=== PATIENT | male | born 1965 ===

== ENCOUNTER 2019-03-31 20:20 | Emergency (ER) | payer MEDICARE, SELFPAY ==
--- NOTE | ~2019-03-31 | XR_ITS ---
EXAMINATION: XR hip LT 2V w AP pelvis INDICATION: Left hip pain, avascular necrosis TECHNIQUE: AP view the pelvis and three views of the left hip are obtained. COMPARISON: None available FINDINGS: Bone alignment is normal. There is no fracture. Sclerosis of the right femoral head and sug gestive of avascular necrosis given the clinical history. IMPRESSION: 1. No acute osseous abnormality. Reviewed, dictated and finalized at location A. [employer]
[2019-03-31 21:02] VITALS: BP 153/90; PULSE 92; RESP 16; TEMP 37.1; O2SAT 98
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
[2019-03-31] MEDS: KETOROLAC (*BKC) 60 MG/2 ML VIAL IM (22:26)
[2019-03-31 23:54] VITALS: BP 107/92; PULSE 82; RESP 18; O2SAT 97
== END 2019-03-31 23:59 | disposition home or self-care (01) ==
PROVIDERS: Emergency Provider Emergency Medicine
DX: M25.552 Pain in left hip (principal); G89.29 Other chronic pain; F41.9 Anxiety disorder, unspecified; F31.9 Bipolar disorder, unspecified; E78.5 Hyperlipidemia, unspecified; G40.909 Epilepsy, unspecified, not intractable, without status epilepticus
CPT/HCPCS: 73502; 73521; 96372; 99283; A9270; J1885

== ENCOUNTER 2020-08-21 18:25 | Emergency (ER) | payer MEDICARE, MEDICAID, SELFPAY ==
--- NOTE | ~2020-08-21 | US_ITS ---
EXAMINATION: US scrotum doppler DATE: 08/21/2020 22:02 INDICATION: Left-sided scrotal swelling TECHNIQUE: Testicular sonogram utilizing grayscale and Doppler COMPARISON: None. FINDINGS: The right testis measures 4.4 x 2.8 x 3.0 cm. The left testis measures 4.4 x 2.9 x 3.0 cm. There is normal vascular flow to both testes. The right epididymis contains a 5 mm cyst. The left epi didymis is normal with normal vascular flow. There is a large left hydrocele. IMPRESSION: 1. Large left hydrocele. Reviewed, dictated and finalized at location A. IMPRESSION: 1. Large left hydrocele.
--- NOTE | ~2020-08-21 | CT_ITS ---
EXAMINATION: CT abdomen pelvis w con INDICATION: Left-sided coronal spelling and penile discharge TECHNIQUE: Computed tomographic images of the abdomen and pelvis were obtained after the administrati on of 100 cc of Omnipaque 350 intravenous contrast. The dose-length product (DLP) was 1473.30 mGy-cm. Automated exposure control and iterative reconstruction technique were employed. COMPARISON: None available FINDINGS: Minimal dependent atelectasis is present in the lung bases. The heart size is normal. Punct ate calcifications in an otherwise normal spleen likely represent healed granulomatous disease. The l iver, pancreas, gallbladder, and adrenal glands are normal. The kidneys are unremarkable. There is ca lcified atherosclerosis of the aorta and many of the other arteries. No pathologically enlarged abdom inal or pelvic lymph nodes are identified. There is no free intraperitoneal gas or evidence of bowel obstruction. There is a large left hydrocele. Changes of left total hip arthroplasty are noted. There is moderate lower lumbar spondylosis. A fat-containing umbilical hernia is noted. IMPRESSION: 1. Large left hydrocele Reviewed, dictated and finalized at location A. IMPRESSION: 1. Large left hydrocele
[2020-08-21 18:27] VITALS: BP 172/88; PULSE 80; RESP 17; TEMP 36.7; O2SAT 99
[2020-08-21 20:26] LABS: Add Urine Microscopic? NO; Appearance Urine Clear (Clear); Bilirubin Urine Negative (Negative); Blood Urine Negative (Negative); Color Urine Straw (Yellow); Glucose Urine UA Negative (Negative); Ketones Urine Negative (Negative); Leukocyte Esterase Ur Negative LEU/UL (Negative); Nitrate Urine Negative (Negative); Protein Urine Negative (Negative); Specific Grav Ur 1.008 (1.001-1.035); Urobilinogen Urine Negative mg/dL (<2.0)
[2020-08-21 21:41] VITALS: BP 165/98; PULSE 68; RESP 18; TEMP 36.6; O2SAT 97
[2020-08-21 22:21] LABS: Basophils Percent Auto 0.4 % (0.2-1.2); Eosinophils Absolute Auto 0.1 K/mm3 (0-0.3); Eosinophils Percent Auto 1.2 % (0-4.4); Hematocrit 37.2 % (42.0-52.0); Hemoglobin 12.2 g/dL (14.0-18.0); Immature Granulocyte Absolute 0.02 K/mm3 (0.00-0.031); Immature Granulocyte Percent A 0.2 % (0-0.5); Lymphocytes Absolute Auto 3.87 K/mm3 (0.9-3.2); Lymphocytes Percent Auto 43.1 % (18.3-44.2); Mean Corpuscular HGB Conc 32.8 g/dl (32-36); Mean Corpuscular Hemoglobin 29.3 pg (26-34); Mean Corpuscular Volume 89.2 fl (80-100); Mean Platelet Volume 10.1 fl (7.4-10.4); Monocytes Absolute Auto 0.6 K/mm3 (0.1-0.6); Monocytes Percent Auto 6.4 % (2.6-8.5); Neutrophils Absolute Auto 4.4 K/mm3 (1.3-6.7); Neutrophils Percent Auto 48.7 % (45.5-73.1); Platelet Count Result 223 k/mm3 (150-375); Red Blood Count 4.17 M/mm3 (4.6-6.20); Red Cell Distribution Width 14.8 % (11.5-14.5)
[2020-08-21 22:29] LABS: Alanine Aminotransferase 24 U/L (4-50); Albumin Level 4.5 g/dL (3.5-5.1); Alkaline Phosphatase 71 U/L (38-126); Anion Gap 8 mmol/L (8-16); Aspartate Amino Transferase 32 U/L (17-59); Bilirubin,Total 0.4 mg/dL (0.2-1.3); Blood Urea Nitrogen 14 mg/dL (9-20); Calcium 9.3 mg/dL (8.4-10.2); Carbon Dioxide 24 mmol/L (22-30); Chloride 108 mmol/L (98-107); Estimated Glomerular Filt Rate > 60; Glucose 91 mg/dL (75-110); Potassium 3.9 mmol/L (3.4-5.0); Sodium 140 mmol/L (137-145)
--- NOTE | 2020-08-21 23:04 | ED.GENADULT ---
HPI - General Adult General Chief complaint: Unspecified Stated complaint: groin swelling Time Seen by Provider: 08/21/20 21:13 History of Present Illness HPI narrative: Patient 34-year-old gentleman presents the emergency department chief complaint of left testicle pain. Patient states that he took a shower today and noticed that his left testicle was significantly swollen patient states that it was painful and is concerned that he may either have a hernia or something going on in his scrotum. Patient denies fever denies chills denies discharge states that has had no difficulty urinating. Related Data Home Medications Medication Instructions Recorded Confirmed atorvastatin 40 mg tablet 40 mg PO DAILY 02/09/20 clopidogrel 75 mg tablet 75 mg PO DAILY 02/09/20 enalapril maleate 10 mg tablet 10 mg PO DAILY 02/09/20 levetiracetam 1,000 mg tablet 2,000 mg PO Q12H tablet 02/09/20 metoprolol tartrate 25 mg tablet 25 mg PO DAILY 02/09/20 Allergies Allergy/AdvReac Type Severity Reaction Status Date / Time vancomycin Allergy Intermediate Hives / Verified 02/09/20 10:27 Red Face azithromycin Allergy Mild Hives / Verified 02/09/20 10:27 Red Face cefdinir Allergy Unknown Hives / Verified 02/09/20 10:27 Red Face Review of Systems Review of Systems: Narrative: A 10 system review of systems was completed on the patient and is negative except for what is stated in the HPI. Nursing and ancillary documentation was reviewed. PMFSH Past Medical History Medical History Anxiety Bipolar 1 disorder Bronchitis Depression Hyperlipidemia Metatarsal fracture 5th on right foot Pneumonia Seizure Surgical History Surgical History History of brain surgery to remove an abscess Social History Social History Smoking status: Former smoker Tobacco type: cigarettes and smokeless tobacco Smokeless tobacco user: chewing tobacco Gender identity (if verbalized by the patient): Male Exam Narrative: Exam Narrative: GENERAL: Well-appearing, well-nourished, and in no acute distress. HEAD: Normocephalic, atraumatic. EYES: PERRLA and EOMI. ENT: Nares clear, no rhinorrhea or epistaxis. Mucous membranes moist. NECK: Supple. CHEST: Clear to auscultation. No respiratory distress. HEART: Regular rate and rhythm. No murmur heard. Normal peripheral pulses. ABDOMEN: Soft, nontender, nondistended, normal active bowel sounds. EXTREMITIES: Normal range of motion. No edema. : The scrotum is enlarged in the left hemiscrotum has not significantly swollen there is no erythema there is no fluctuance there is no signs of Arun's. SKIN: Warm, dry, no rash. NEURO: No focal deficits. Alert and oriented x3. PSYCH: Normal mood and affect. Course Course Emergency Course: Ultrasound shows evidence of hydrocele without evidence of torsion CT scan shows no evidence of hernia Vital Signs Vital signs: Vital Signs Temperature 36.7 C 08/21/20 18:27 Pulse Rate 80 08/21/20 18:27 Respiratory Rate 17 08/21/20 18:27 Blood Pressure 172/88 H 08/21/20 18:27 Pulse Oximetry 99 08/21/20 18:27 Temperature 36.6 C 08/21/20 21:41 Pulse Rate 68 08/21/20 21:41 Respiratory Rate 18 08/21/20 21:41 Blood Pressure 165/98 H 08/21/20 21:41 Pulse Oximetry 97 08/21/20 21:41 Medical Decision Making Vital Signs Vital Signs: Vital Signs Temperature 36.7 C 08/21/20 18:27 Pulse Rate 80 08/21/20 18:27 Respiratory Rate 17 08/21/20 18:27 Blood Pressure 172/88 H 08/21/20 18:27 Pulse Oximetry 99 08/21/20 18:27 Temperature 36.6 C 08/21/20 21:41 Pulse Rate 68 08/21/20 21:41 Respiratory Rate 18 08/21/20 21:41 Blood Pressure 165/98 H 08/21/20 21:41 Pulse Oximetry 97 08/21/20 21:41 Lab Data Result andi
[2020-08-21 23:26] VITALS: BP 160/90; PULSE 66; RESP 18; O2SAT 98
== END 2020-08-21 23:27 | disposition home or self-care (01) ==
PROVIDERS: Emergency Medicine; Emergency Provider Emergency Medicine; PCP Physician Assistant
DX: N43.3 Hydrocele, unspecified (principal); E78.5 Hyperlipidemia, unspecified
CPT/HCPCS: 36415; 74177; 76870; 80053; 81003; 85025; 93976; 99284; Q9967

== ENCOUNTER 2022-09-28 13:46 | Inpatient (IN) | payer MEDICARE, MEDICAID, SELFPAY ==
[2022-09-28] VITALS (9 sets, daily range): BP systolic 123–175; BP diastolic 50–94; PULSE 72–88; RESP 16–22; TEMP 36.4–36.9; O2SAT 96–98; BMI 37.2
--- NOTE | ~2022-09-28 | CT_ITS ---
Non-contrast Head CT History: Headache Technique: Axial non-contrast imaging of the brain was performed. Dose reduction technique was used on this scan by utilizing automated exposure control and iterative reconstruction technique. The dose -length product (DLP) was 605.33 mGy-cm. Findings: There is no evidence of intracranial hemorrhage, mass lesion, or acute infarct. There is e ncephalomalacia in the right parietal lobe.. There is dilatation of the lateral ventricles, especiall y right lung, with overlying extensive right craniotomy. The visualized paranasal sinuses and mastoid air cells are clear. Impression: No acute abnormality evident. Postoperative encephalomalacia and associated ex vacuo dilatation of the right lateral ventricle with overlying extensive right craniotomy. Correlate with prior surgical history. Reviewed, dictated and finalized at [facility]. Impression: No acute abnormality evident. Postoperative encephalomalacia and associated ex vacuo dilatation of the right lateral ventricle with overlying extensive right craniotomy. Correlate with marko or surgical history.
--- NOTE | ~2022-09-28 | XR_ITS ---
EXAMINATION: XR chest 1V portable Exam Date/Time: 09/30/2022 17:45 CDT HISTORY: IABP placement confirmation Comparison: 09/29/2022. RESULT: Lines, tubes, and devices: Surgical clips over the mediastinum. Lungs and pleura: Clear. Cardiomediastinal silhouette: Stable. Other: No acute osseous or upper abdominal finding. IMPRESSION: No acute cardiopulmonary process. Reviewed, dictated and finalized at location K.
--- NOTE | ~2022-09-28 | XR_ITS ---
Portable chest x-ray Comparison: 02/19/2017 Clinical History: Chest pain Findings: There is mild diffuse interstitial prominence, worst at the right lung base. There is righ t basilar airspace disease. No definite pleural effusion or pneumothorax. Cardiomediastinal silhouet te is stable. Bones and soft tissues are unremarkable. Impression: Mild diffuse interstitial prominence, especially right lung base. Correlate for COPD, chronic interst itial disease or atypical infection. Additional right basilar airspace disease could reflect atelectasis versus pneumonia. Correlate clini karley. Reviewed, dictated and finalized at location . Impression: Mild diffuse interstitial prominence, especially right lung base. Correlate for COPD, chronic interstitial disease or atypical infection. Additional right basilar airspace disease could reflect atelectasis versus pneu monia. Correlate clinically.
--- NOTE | 2022-09-28 16:02 | ED.GENADULT ---
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 Patient states his symptoms have been present for the past 2 weeks, he describes them as throbbing sensation in the left arm and that intermittently spreads to the left leg. These episodes last approximately 30 seconds at a time and spontaneously resolved. He also complains of sharp and throbbing headache, rated 8/10. Related Data Home Medications Medication Instructions Recorded Confirmed atorvastatin 40 mg tablet 40 mg PO DAILY 02/09/20 10/30/20 clopidogrel 75 mg tablet 75 mg PO DAILY 02/09/20 10/30/20 enalapril maleate 10 mg tablet 10 mg PO DAILY 02/09/20 10/30/20 metoprolol tartrate 25 mg tablet 25 mg PO DAILY 02/09/20 10/30/20 Allergies Allergy/AdvReac Type Severity Reaction Status Date / Time vancomycin Allergy Intermediate Hives / Verified 07/29/22 15:22 Red Face azithromycin Allergy Mild Hives / Verified 07/29/22 15:22 Red Face cefdinir Allergy Unknown Hives / Verified 07/29/22 15:22 Red Face Review of Systems Review of Systems: CONSTITUTIONAL: Denies fever, chills, or sweats. EYES: Denies visual changes, redness, or discharge. CARDIOVASCULAR: Denies chest pain, palpitations, or edema. RESPIRATORY: Denies cough or dyspnea. GASTROINTESTINAL: Denies abdominal pain, nausea, vomiting, or diarrhea. GENITOURINARY: Denies dysuria or hematuria. SKIN: Denies rash or itching. MUSCULOSKELETAL: Denies back pain, joint pain, or myalgia. NEUROLOGIC: Left arm and leg twitching denies headache, numbness, dizziness, or weakness. PSYCHIATRIC: Denies anxiety or depression. [facility] Past Medical History Medical History Anxiety Bipolar 1 disorder Bronchitis Depression Hyperlipidemia Metatarsal fracture 5th on right foot Pneumonia Seizure Surgical History Surgical History History of brain surgery (~08/2021) to remove an abscess Hx of heart artery stent Social History Social History Smoking status: Former smoker Tobacco type: cigarettes and smokeless tobacco Smokeless tobacco user: chewing tobacco Smoking end date: 12/23/07 Alcohol intake: current Alcohol use details: beer occasionally Substance use: never Substance use type: does not use Lack of Transportation: No Lack of Food: Sometimes True Current Housing: I Have Housing Concerned About Future Housing: No Difficulty Paying Gas/Electric Bills: No Difficulty Paying for Meds: No Currently Unemployed: No Education: Grade School Difficulty w/ Childcare or Family Care: No Gender identity (if verbalized by the patient): Male Exam Narrative: GENERAL: Well-developed, well-nourished, and in no acute distress. HEAD: Normocephalic, atraumatic. EYES: PERRLA and EOMI. ENT: Nares clear, no rhinorrhea or epistaxis. Mucous membranes moist. Oropharynx without tonsillar hypertrophy exudate or other lesions. CHEST: Clear to auscultation. No respiratory distress. No wheezes rales or rhonchi HEART: Regular rate and rhythm. No murmur heard. Normal peripheral pulses. ABDOMEN: Soft, nontender, nondistended, normal active bowel sounds. EXTREMITIES: Normal range of motion. No edema. SKIN: Warm, dry, no rash. NEURO: No focal deficits. Alert and oriented x3. Sensation intact bilaterally. Strength 5/5 in all extremities PSYCH: Normal mood and affect. Course C
[2022-09-28 16:26] LABS: Basophils Percent Auto 0.4 % (0.2-1.2); Eosinophils Absolute Auto 0.1 K/mm3 (0-0.3); Eosinophils Percent Auto 1.1 % (0-4.4); Hematocrit 39.1 % (42.0-52.0); Hemoglobin 12.3 g/dL (14.0-18.0); Immature Granulocyte Absolute 0.04 K/mm3 (0.00-0.031); Immature Granulocyte Percent A 0.5 % (0-0.5); Lymphocytes Absolute Auto 2.96 K/mm3 (0.9-3.2); Mean Corpuscular HGB Conc 31.5 g/dl (32-36); Mean Corpuscular Hemoglobin 28.5 pg (26-34); Mean Corpuscular Volume 90.7 fl (80-100); Mean Platelet Volume 9.2 fl (7.4-10.4); Monocytes Absolute Auto 0.6 K/mm3 (0.1-0.6); Monocytes Percent Auto 7.4 % (2.6-8.5); Neutrophils Absolute Auto 4.5 K/mm3 (1.3-6.7); Neutrophils Percent Auto 54.6 % (45.5-73.1); Platelet Count Result 203 k/mm3 (150-375); Red Blood Count 4.31 M/mm3 (4.6-6.20); Red Cell Distribution Width 15.6 % (11.5-14.5); White Blood Count 8.2 K/mm3 (4.5-10.0)
[2022-09-28 16:37] LABS: Alanine Aminotransferase 36 U/L (6-50); Albumin Level 4.7 g/dL (3.5-5.1); Alkaline Phosphatase 85 U/L (38-126); Anion Gap 5 mmol/L (8-16); Aspartate Amino Transferase 38 U/L (17-59); Bilirubin,Total 0.8 mg/dL (0.2-1.3); Blood Urea Nitrogen 11 mg/dL (9-20); Calcium 8.7 mg/dL (8.4-10.2); Carbon Dioxide 30 mmol/L (22-30); Chloride 103 mmol/L (98-107); Estimated CRCL calculation 88 ml/min; Estimated Glomerular Filt Rate > 60; Glucose 91 mg/dL (65-110); Magnesium 2.1 mg/dL (1.6-2.3); Potassium 4.1 mmol/L (3.4-5.0); Sodium 138 mmol/L (137-145)
--- NOTE | 2022-09-28 17:31 | ECG_ITS ---
Measurements Intervals [place] Rate: 81 P: 47 TN: 152 QRS: 52 QRSD: 97 T: 55 QT: 387 QTc: 450 Interpretive Statements SINUS RHYTHM NONSPECIFIC ST AND T CHANGES CONSIDER INFEROLATERAL ISCHEMIA ABNORMAL ECG NO PREVIOUS ECG AVAILABLE FOR COMPARISON Electronically Signed On 09-29-2022 8:26:40 CDT by Raymond Sanabria M.D.
[2022-09-28 18:39] LABS: Prothrombin Time 13.9 Seconds (11.1-14.7)
[2022-09-28 18:40] LABS: Partial Thromboplastin Time 28.4 SECONDS (22.3-36.8)
[2022-09-28] MEDS: ASPIRIN 81 MG CHEWABLE TABLET 324 MG PO (18:40)
[2022-09-28] MEDS: HEPARIN SOD/D5W 100 UNITS/ML 25,000 UNITS/250 ML BAG 10 UNITS IV CONT (18:41)
[2022-09-28] MEDS: HEPARIN SODIUM 5,000 UNITS/ML VIAL 4000 UNITS IV PUSH (18:43)
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
--- NOTE | 2022-09-28 21:13 | ADMGEN ---
This patient, Brian Diaz, was admitted to IMU Room 214-01 at 2001. Patient/family oriented to hospital policies and general routines including ID bracelet, bed and alarms, visiting hours, pain management, procedures, bathroom and other care routines, personal items, smoking policy, room service/diet, and visiting hours. Information on how to activate the Rapid Response Team has been discussed. Patient/Family are encouraged to report perceived risks to care and to ask questions if they do not understand what they are told or what they should do.
[2022-09-28] MEDS: ATORVASTATIN 40 MG TABLET PO (22:21)
[2022-09-28] MEDS: QUEtiapine FUMARATE 100 MG TABLET 300 MG PO (22:21)
[2022-09-28] MEDS: METOPROLOL TARTRATE 25 MG TABLET PO (22:22)
[2022-09-28] MEDS: levETIRAcetam 500 MG TABLET 1000 MG PO (22:22)
[2022-09-28] MEDS: HYDROcodone/acetaminophen (*CRX) 5-325 MG TABLET 1 TAB PO (22:35)
[2022-09-28] MEDS: ENALAPRIL MALEATE 5 MG TABLET PO (22:35)
[2022-09-29] VITALS (21 sets, daily range): BP systolic 128–179; BP diastolic 67–104; PULSE 48–94; RESP 18–22; TEMP 36.1–36.6; O2SAT 95–100
--- NOTE | 2022-09-29 00:06 | PC.NURSE ---
Pt rude and not wanting to answer admission questions. Explained to patient by Dr Babin that these questions are necessary for his care. Pt states you guys aren't giving me what I need, instead your asking stupid questions and I've never had to answer these questions before, they just get to it while motioning to his IV. Pt states he has never been asked admit questions at this hospital ever. Pt threatens to leave and states' get this off me gesturing to heart monitor. Dr. Babin explains he will be leaving against medical advice which he shouldn't due because he needs treatment and this Nurse informs him he will need to sign a form first. Patient continues to complain and this nurse asks patient to clarify if he is leaving or staying. Pt answers are you gonna keep asking questions . This nurse explains the admission is done, this is a care standard, and that Betsy RODRÍGUEZ has been getting his fluids and pain medicine ready while admission in progress, and we are waiting for blood to be ready. Patient informed he needs to respectful with staff and he again demand we give him what he needs .
[2022-09-29 00:57] LABS: Partial Thromboplastin Time 43.5 SECONDS (22.3-36.8)
[2022-09-29] MEDS: HEPARIN SODIUM 5,000 UNITS/ML VIAL 4000 UNITS IV PUSH (01:07)
[2022-09-29] MEDS: clonazePAM (*CRX) 0.5 MG TABLET PO ×3 (01:16→23:54)
[2022-09-29] MEDS: NITROGLYCERIN SL 0.4 MG TABLET SUBLINGUAL (04:18)
[2022-09-29 07:01] LABS: Basophils Percent Auto 0.4 % (0.2-1.2); Eosinophils Absolute Auto 0.1 K/mm3 (0-0.3); Eosinophils Percent Auto 1.3 % (0-4.4); Hematocrit 37.7 % (42.0-52.0); Hemoglobin 11.9 g/dL (14.0-18.0); Immature Granulocyte Absolute 0.03 K/mm3 (0.00-0.031); Immature Granulocyte Percent A 0.4 % (0-0.5); Lymphocytes Absolute Auto 3.14 K/mm3 (0.9-3.2); Lymphocytes Percent Auto 42.4 % (18.3-44.2); Mean Corpuscular HGB Conc 31.6 g/dl (32-36); Mean Corpuscular Hemoglobin 28.1 pg (26-34); Mean Corpuscular Volume 88.9 fl (80-100); Mean Platelet Volume 9.1 fl (7.4-10.4); Monocytes Absolute Auto 0.5 K/mm3 (0.1-0.6); Monocytes Percent Auto 7.2 % (2.6-8.5); Neutrophils Absolute Auto 3.6 K/mm3 (1.3-6.7); Neutrophils Percent Auto 48.3 % (45.5-73.1); Platelet Count Result 161 k/mm3 (150-375); Red Blood Count 4.24 M/mm3 (4.6-6.20); Red Cell Distribution Width 15.5 % (11.5-14.5); White Blood Count 7.4 K/mm3 (4.5-10.0)
[2022-09-29 07:08] LABS: Alanine Aminotransferase 31 U/L (6-50); Albumin Level 4.3 g/dL (3.5-5.1); Alkaline Phosphatase 79 U/L (38-126); Anion Gap 9 mmol/L (8-16); Aspartate Amino Transferase 33 U/L (17-59); Bilirubin,Total 0.9 mg/dL (0.2-1.3); Blood Urea Nitrogen 11 mg/dL (9-20); Carbon Dioxide 27 mmol/L (22-30); Chloride 101 mmol/L (98-107); Cholesterol 137 mg/dL (0-200); Estimated CRCL calculation 97 ml/min; Estimated Glomerular Filt Rate > 60; Glucose 107 mg/dL (65-110); HDL Direct 49 mg/dL; Magnesium 2.2 mg/dL (1.6-2.3); Sodium 137 mmol/L (137-145); Triglycerides 351 mg/dL (<150)
[2022-09-29 07:14] LABS: Partial Thromboplastin Time 69.6 SECONDS (22.3-36.8)
[2022-09-29 07:19] LABS: LDL Cholesterol Direct 54 mg/dL
--- NOTE | 2022-09-29 07:57 | PM.IMPN ---
Progress Note: A&P Assessment and Plan (1) Non-ST elevation [place] (NSTEMI): Code(s): I21.4 - Non-ST elevation (NSTEMI) myocardial infarction Status: Acute Assessment and Plan: EKG in the emergency department with inferior lead ST segment depression possibly ischemic. Troponins elevated initially and continued to rise with each subsequent recheck. Patient on dual antiplatelet therapy and aspirin was given in the emergency department. Heparin drip infusing. Cardiology consulted and appreciate their plan and assistance. Cardiology consult plan is to take patient for coronary angiogram tomorrow. (2) Arm pain, left: Code(s): M79.602 - Pain in left arm Status: Acute Assessment and Plan: Patient complaining of periodic throbbing and twitching and left arm and occasionally in left leg. Possibly related to cardiac ischemia or possibly related to history of focal seizures in left upper and lower extremities (3) Hyperlipidemia: Code(s): E78.5 - Hyperlipidemia, unspecified Status: Acute Assessment and Plan: Patient is on atorvastatin which will be continued. Triglycerides elevated at 351 but not a fasting sample. Total cholesterol, LDL and HDL all within desired ranges. (4) Hypertension: Code(s): I10 - Essential (primary) hypertension Status: Acute Assessment and Plan: Continue home medications of metoprolol and enalapril. Consider IV antihypertensives for sustained elevated blood pressure. (5) Bipolar 1 disorder: Code(s): F31.9 - Bipolar disorder, unspecified Status: Acute Assessment and Plan: Mood assessed to be neither manic nor significantly depressed. Continue home medications and monitor for mood changes. 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 - Localization-related (focal) (partial) symptomatic epilepsy and epileptic syndromes with simple partial seizures, not intractable, without status epilepticus Status: Acute Assessment and Plan: Patient concerned that his left arm twitching and throbbing could be related to history of left sided extremity focal seizures but does usually resolve after patient ?take(s) a pill.? Patient denies any generalized tonic clonic seizures and reports compliance with Keppra. Continue Keppra. Consider Neurology consult if symptoms do not improve. Plan Continue home medications including dual anti-platelet therapy and antihypertensives. Continue heparin drip. Maintain blood pressure control. Monitor for significant mood changes. Patient going for coronary angiogram tomorrow. NPO after midnight. Subjective Date/time seen: 09/29/22 08:10 Interval history: This is a 56-year-old male patient with past history of coronary artery disease with [address], seizures and prior brain abscess in 2007 who was admitted to the hospitalist service due to elevated troponins and questionable findings of ischemia on EKG. Patient follows with cardiology out of [facility]. Upon evaluation this morning patient is alert and oriented. He denies any chest pain or shortness of breath but states he is having involuntary twitching and throbbing discomfort to his left arm and sometimes left leg that is intermittent but recurrent. This has been ongoing for about a week. He is also complaining of a slight headache. Patient concerned that his left extremity throbbing pain may be related to focal seizures related to his prior brain abscess but this is not his typical presentation for such. Patient states he did not rest well overnight but no significant change in his condition or complaints overnight. Heparin drip is infusing. Cardiology consult requested and appreciate recommendations. Review of Systems Review of Systems: All systems reviewed & are unremarkable except as noted in HPI and below Constitutional: Comments: Denies fever chills Cardiovascular: Comments: Denies chest pain d
[2022-09-29] MEDS: METOPROLOL TARTRATE 25 MG TABLET PO ×2 (09:55→20:24)
[2022-09-29] MEDS: ENALAPRIL MALEATE 5 MG TABLET PO ×2 (09:55→16:15)
[2022-09-29] MEDS: levETIRAcetam 500 MG TABLET 1000 MG PO ×2 (09:56→20:23)
[2022-09-29] MEDS: ASPIRIN 81 MG ENTERIC TABLET PO (09:57)
[2022-09-29] MEDS: CLOPIDOGREL BISULFATE 75 MG TABLET PO (09:57)
[2022-09-29] MEDS: HEPARIN SODIUM 5,000 UNITS/ML VIAL 3500 UNITS IV PUSH ×2 (09:58→16:24)
--- NOTE | 2022-09-29 10:19 | ECG_ITS ---
Measurements Intervals [place] Rate: 84 P: 44 MN: 163 QRS: 62 QRSD: 101 T: 84 QT: 389 QTc: 461 Interpretive Statements SINUS RHYTHM ST DEVIATION AND MODERATE T-WAVE ABNORMALITY, CONSIDER ANTERIOR ISCHEMIA [-0.1+ mV T WAVE IN V3/V4] ABNORMAL ECG COMPARED TO ECG 09/28/2022 17:38:42 NO SIGNIFICANT CHANGES Electronically Signed On 09-30-2022 10:32:55 CDT by Sreekanth Tolbert M.D.
--- NOTE | 2022-09-29 10:46 | PM.CNCAR ---
Assessment and Plan Assessment and plan (1) Non-ST elevation [place] (NSTEMI): Code(s): I21.4 - Non-ST elevation (NSTEMI) myocardial infarction Status: Acute Plan 56-year-old man with known coronary disease previous PCI most recently a stent done August of last year at [facility]. He comes to this hospital with a very strange symptom complex including headache throbbing in his left arm none of which sounds particularly concerning for ischemia. He does however have a moderate troponin rise. He is heparinized and is clinically stable. Given this setting we will proceed with a follow-up coronary angiogram tomorrow. Further recommendations will be pending those findings Raymond Sanabria MD [facility] History of Present Illness History of Present Illness Consult date/time: 09/29/22 10:46 Reason For Visit: NSTEMI Narrative: This is a 56-year-old man I am seeing at the request of the hospitalist because of the apparent diagnosis of acute coronary syndrome. The patient is unknown to me prior to this encounter and provides a very strange/unusual history. He came to the hospital because he has been having episodes of symptoms involving a right-sided headache following which the he had a sensation of twitching or throbbing in his left upper extremity. The symptoms began something like 2 or 3 weeks ago they were mild initially and became more problematic and severe. He says he went to the emergency room at another hospital about a week ago had a negative evaluation was allowed to be discharged. He came to this emergency room last night with the symptoms an electrocardiogram was done which showed some inferolateral ST segment depression but in a somewhat nonspecific fashion his troponin levels however were elevated and increased somewhat since presentation. Because of this he was heparinized and admitted to the hospital. He says that he has a history of coronary artery disease dating back for a couple of years or so. 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 Most recent procedure was apparently done in August of 2021 at [facility]. I do not have access to those records as I dictate this note. The patient states that prior to his 1st intervention he was having chest pain with there was a heavy like a bandlike pressure across the precordium. The current symptoms do not bear any resemblance to that. He also confounding all of this has a history of a significant cerebral infection back in . He says he had a brain abscess and had a craniotomy done for treatment of that he has a significant amount of loss of cerebral tissue noted on his CT scan following that. P after that event he had a seizure disorder which does occur on occasion. He has not had any recent seizures. He says the reason for the brain abscess was either felt to be a prior dental infection or use of methamphetamine which he was doing at that time. Denies any use of illicit drugs for recent years. He is taking dual anti-platelet therapy since the intervention last August in aspirin and clopidogrel and reports to be compliant with that. Review of Systems Constitutional: Constitutional: Reports body ache(s) Eyes: Eyes: Reports no additional eye complaints ENT: Reports system reviewed and no additional complaints, except as documented Cardiovascular: Cardiovascular: Reports as per HPI Respiratory: Respiratory: Reports dyspnea on exertion Gastrointestinal: Gastrointestinal: Reports no additional gastrointestinal complaints Musculoskeletal: Musculoskeletal: Reports as per HPI Integumentary/Breasts: Skin/Breast: Reports system reviewed and no additional complaints, except as docu Neurologic: Reports as per HPI and Reports headache(s) Endocrine: Endocrine: Reports no additional endocrine complaints Hematologic/Lymphatic: Hematologic/Lymphatic: Reports no additional h
[2022-09-29] MEDS: ACETAMINOPHEN 325 MG TABLET 650 MG PO ×3 (10:54→20:28)
[2022-09-29 14:45] LABS: Free T4 Free Thyroxine Reflex 2.05 ng/dL (0.78-2.19)
[2022-09-29 16:01] LABS: Total Triiodothyronine (T3) 1.32 NG/ML (0.97-1.69)
[2022-09-29 16:14] LABS: Partial Thromboplastin Time 66.6 SECONDS (22.3-36.8)
[2022-09-29] MEDS: ATORVASTATIN 40 MG TABLET PO (16:15)
[2022-09-29] MEDS: HEPARIN SOD/D5W 100 UNITS/ML 25,000 UNITS/250 ML BAG 15 UNITS IV CONT (16:17)
[2022-09-29] MEDS: QUEtiapine FUMARATE 100 MG TABLET 300 MG PO (22:46)
[2022-09-29 23:05] LABS: Partial Thromboplastin Time 96.1 SECONDS (22.3-36.8)
[2022-09-30] VITALS (27 sets, daily range): BP systolic 136–175; BP diastolic 62–90; PULSE 67–87; RESP 16–25; TEMP 36–37.2; O2SAT 94–98
[2022-09-30 04:38] LABS: Basophils Percent Auto 0.4 % (0.2-1.2); Eosinophils Absolute Auto 0.1 K/mm3 (0-0.3); Eosinophils Percent Auto 1.1 % (0-4.4); Hematocrit 37.2 % (42.0-52.0); Hemoglobin 11.8 g/dL (14.0-18.0); Immature Granulocyte Absolute 0.02 K/mm3 (0.00-0.031); Immature Granulocyte Percent A 0.4 % (0-0.5); Lymphocytes Absolute Auto 2.46 K/mm3 (0.9-3.2); Lymphocytes Percent Auto 44.5 % (18.3-44.2); Mean Corpuscular HGB Conc 31.7 g/dl (32-36); Mean Corpuscular Hemoglobin 28.6 pg (26-34); Mean Corpuscular Volume 90.1 fl (80-100); Mean Platelet Volume 9.4 fl (7.4-10.4); Monocytes Absolute Auto 0.5 K/mm3 (0.1-0.6); Monocytes Percent Auto 8.5 % (2.6-8.5); Neutrophils Absolute Auto 2.5 K/mm3 (1.3-6.7); Neutrophils Percent Auto 45.1 % (45.5-73.1); Platelet Count Result 165 k/mm3 (150-375); Red Blood Count 4.13 M/mm3 (4.6-6.20); Red Cell Distribution Width 15.5 % (11.5-14.5); White Blood Count 5.5 K/mm3 (4.5-10.0)
[2022-09-30 04:47] LABS: Creatine Kinase 68 U/L (55-170)
[2022-09-30 04:49] LABS: Alanine Aminotransferase 27 U/L (6-50); Albumin Level 4.4 g/dL (3.5-5.1); Alkaline Phosphatase 74 U/L (38-126); Anion Gap 2 mmol/L (8-16); Aspartate Amino Transferase 28 U/L (17-59); Bilirubin,Total 0.7 mg/dL (0.2-1.3); Blood Urea Nitrogen 11 mg/dL (9-20); Calcium 9.2 mg/dL (8.4-10.2); Carbon Dioxide 32 mmol/L (22-30); Chloride 105 mmol/L (98-107); Estimated CRCL calculation 88 ml/min; Estimated Glomerular Filt Rate > 60; Glucose 113 mg/dL (65-110); Partial Thromboplastin Time 28.9 SECONDS (22.3-36.8); Potassium 4.3 mmol/L (3.4-5.0); Sodium 139 mmol/L (137-145)
[2022-09-30] MEDS: HEPARIN SODIUM 5,000 UNITS/ML VIAL 4000 UNITS IV PUSH (05:39)
[2022-09-30] MEDS: HEPARIN SOD/D5W 100 UNITS/ML 25,000 UNITS/250 ML BAG 20 UNITS IV CONT (05:39)
[2022-09-30] MEDS: METOPROLOL TARTRATE 25 MG TABLET PO (08:55)
[2022-09-30] MEDS: ASPIRIN 81 MG ENTERIC TABLET PO (08:55)
[2022-09-30] MEDS: CLOPIDOGREL BISULFATE 75 MG TABLET PO (08:55)
[2022-09-30] MEDS: levETIRAcetam 500 MG TABLET 1000 MG PO (08:55)
[2022-09-30] MEDS: ENALAPRIL MALEATE 5 MG TABLET PO ×2 (08:56→16:29)
[2022-09-30] MEDS: ACETAMINOPHEN 325 MG TABLET 650 MG PO ×2 (08:59→15:01)
--- NOTE | 2022-09-30 09:35 | PM.IMPN ---
Progress Note: A&P Assessment and Plan (1) Non-ST elevation [place] (NSTEMI): Code(s): I21.4 - Non-ST elevation (NSTEMI) myocardial infarction Status: Acute Assessment and Plan: Patient presents with atypical symptoms with left arm throbbing, headache and left leg twitching. Troponin was elevated on admission and peaked at 2.54. TCK normal. EKG showing NSR with nonspecific ST-T wave changes inferolateral leads. Patient on Plavix, ASA, Lipitor and Toprol on admission and these medications were continued. He was started on Heparin drip. Cardiology consulted and appreciate their input. Plan for [facility] later today. Echo ordered. (2) Arm pain, left: Code(s): M79.602 - Pain in left arm Status: Acute Assessment and Plan: Patient complaining of periodic throbbing and twitching and left arm and occasionally in left leg. Possibly anginal equivalent. These symptoms are different from his previous presentation at which time he had angioplasty/stent. Follow up on [facility] results. May need further workup if he has recurrent symptoms; consider focal seizures. (3) Hyperlipidemia: Code(s): E78.5 - Hyperlipidemia, unspecified Status: Acute Assessment and Plan: LFTs normal. TG 351, TC 137, HDL 54 and HDL 49. Patient is on atorvastatin which will be continued. (4) Hypertension: Code(s): I10 - Essential (primary) hypertension Status: Acute Assessment and Plan: Patient's blood pressure was reviewed on 09/30 Blood pressure better controlled. Will continue current medications. (5) Bipolar 1 disorder: Code(s): F31.9 - Bipolar disorder, unspecified Status: Acute Assessment and Plan: Mood assessed to be neither manic nor significantly depressed. Continue home medications of Seroquel and Effexor and monitor for mood changes. 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 - Localization-related (focal) (partial) symptomatic epilepsy and epileptic syndromes with simple partial seizures, not intractable, without status epilepticus Status: Acute Assessment and Plan: Patient has a hx of focal seizures and is concerned that his left arm twitching and throbbing could be related to his history of left sided extremity focal seizures. He does ?take(s) a pill? that he states is his Keppra. Patient denies any generalized tonic clonic seizures and reports compliance with Keppra. Continue Keppra. Consider Neurology consult if symptoms do not improve. (7) Abnormal chest xray: Code(s): R93.89 - Abnormal findings on diagnostic imaging of other specified body structures Status: Acute Assessment and Plan: Chest x-ray showed mild diffuse interstitial prominence specially the right lung base and associated airspace disease. No oxygen requirements. No complaints of odynophagia or dysphagia. White count is normal. Differential essentially normal. Minimal clinical findings. Consider atypical or viral infection, aspiration, ILD (though not seen 2020), edema. Consider BCx if he developes fever. Check COVID/influenza/RSV. Check sputum. Will inquire about bird exposure. Order Echo. Check bedside swallow. Check BNP. Plan DVT prophylaxis - Heparin Code status - Full Subjective Date/time seen: 09/30/22 09:35 Interval history: 56yo male with CAD s/p 2 stents, 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 He slept well last night. No CP. No recurrent left arm pain. No SOB. Overnight, patient accidently pulled out IV. Exam Narrative: AF 97.3 144/62 85 18 94% ra Gen - NARD Chest - mild basilar inspiratory rhonci CV - RRR S1/S2. Tele showing no significant dysrhythmias Abd - Soft, NT/ND, Positive BS Ext - No pedal edema Psych - Nml mood and affect. pleasant and cooperative Skin - Warm and dry Objective Data Vital Signs Vital Signs: Vital
[2022-09-30 10:36] LABS: NT Pro B Type Natriuretic Pept 3500 pg/mL (19.9-100)
--- NOTE | 2022-09-30 11:47 | WPDMODSED ---
Moderate Sedation Note-Pt Data Patient Data Diagnosis: atypical chest pain troponin elevation consistent with non STEMI Present Complaint: intermittent episodes of headache with left arm throbbing Procedure to be performed/Plan: left heart catheterization Allergies Allergy/AdvReac Type Severity Reaction Status Date / Time vancomycin Allergy Intermediate Hives / Verified 07/29/22 15:22 [place] azithromycin Allergy Mild Hives / Verified 07/29/22 15:22 [place] cefdinir Allergy Unknown Hives / Verified 07/29/22 15:22 [place] levofloxacin [From Levaquin] Allergy Unknown Hives Verified 09/28/22 23:16 Home Medications Medication Instructions Recorded Confirmed Type atorvastatin 40 mg tablet 40 mg PO QPM 02/09/20 09/28/22 History clopidogrel 75 mg tablet 75 mg PO DAILY 02/09/20 09/28/22 History metoprolol tartrate 25 mg tablet 25 mg PO BID 02/09/20 09/28/22 History albuterol sulfate 90 mcg/actuation 2 puff inhalation QID PRN 09/28/22 09/28/22 History aerosol inhaler (Ventolin HFA) Shortness Of Breath aspirin 81 mg tablet,delayed 81 mg PO DAILY 09/28/22 09/28/22 History release clonazepam 0.5 mg tablet 0.5 mg PO BID PRN Anxiety 09/28/22 09/28/22 History enalapril maleate 5 mg tablet 5 mg PO BID 09/28/22 09/28/22 History levetiracetam 1,000 mg tablet 1,000 mg PO Q12H 09/28/22 09/28/22 History quetiapine 300 mg tablet 300 mg PO HS 09/28/22 09/28/22 History venlafaxine 150 mg 150 mg PO DAILY 09/28/22 09/28/22 History capsule,extended release 24 hr Current Medications: Active Medications Acetaminophen (Acetaminophen 325 Mg Tablet) 650 mg PO Q4H PRN PRN Reason: Mild Pain (1-3) or Fever Last Admin: 09/30/22 08:59 Dose: 650 mg Albuterol (Albuterol Sulfate (*Sp) Aerosol 1 Puff) 2 puff INHALATION QID PRN PRN Reason: Shortness Of Breath Aspirin (Aspirin 81 Mg Enteric Tablet) 81 mg PO DAILY MAGALI Last Admin: 09/30/22 08:55 Dose: 81 mg Atorvastatin Calcium (Atorvastatin 40 Mg Tablet) 40 mg PO QPM [facility] Last Admin: 09/29/22 16:15 Dose: 40 mg Clonazepam (Clonazepam (*Crx) 0.5 Mg Tablet) 0.5 mg PO BID PRN PRN Reason: Anxiety Last Admin: 09/29/22 23:54 Dose: 0.5 mg Clopidogrel Bisulfate (Clopidogrel Bisulfate 75 Mg Tablet) 75 mg PO DAILY [facility] Last Admin: 09/30/22 08:55 Dose: 75 mg Enalapril Maleate (Enalapril Maleate 5 Mg Tablet) 5 mg PO BID [facility] Last Admin: 09/30/22 08:56 Dose: 5 mg Heparin Sodium (Porcine) (Heparin Sodium 5,000 Units/Ml Vial) 3,500 units IV PUSH PRN PRN PRN Reason: aPTT 55 - 70 seconds Last Admin: 09/29/22 16:24 Dose: 3,500 units Heparin Sodium (Porcine) (Heparin Sodium 5,000 Units/Ml Vial) 4,000 units IV PUSH PRN PRN PRN Reason: aPTT less than 55 seconds Last Admin: 09/30/22 05:39 Dose: 4,000 units Hydralazine HCl (Hydralazine Hcl 20 Mg/Ml Vial) 10 mg IV PUSH Q4H PRN PRN Reason: Blood Pressure - High Heparin Sodium/Dextrose (Heparin Sodium/D5w 100 Units/Ml) 25,000 units in 250 mls @ 20 mls/hr IV CONT .[id number] [facility]; Protocol Last Admin: 09/30/22 05:39 Dose: 2,000 units/hr, 20 mls/hr Levetiracetam (Levetiracetam 500 Mg Tablet) 1,000 mg PO Q12HR [facility] Last Admin: 09/30/22 08:55 Dose: 1,000 mg Metoprolol Tartrate (Metoprolol Tartrate 25 Mg Tablet) 25 mg PO Q12HR [facility] Last Admin: 09/30/22 08:55 Dose: 25 mg Morphine Sulfate (Morphine Sulfate (*Crx) 4 Mg/Ml Inj) 4 mg IV PUSH Q2H PRN PRN Reason: Pain Rated 7-10 Nitroglycerin (Nitroglycerin Sl 0.4 Mg Tablet) 0.4 mg SUBLINGUAL Q5MIN PRN PRN Reason: Chest Pain Last Admin: 09/29/22 04:18 Dose: 0.4 mg Ondansetron HCl (Ondansetron Inj 4 Mg/2 Ml Vial) 4 mg IV PUSH Q4H PRN PRN Reason: Nausea Perflutren Lipid Microsphere (Perflutren Lipid Microspheres 1.5 Ml Vial Diluted To 10 Ml Total Volume) 0 ml IV PUSH ONCE PRN; Protocol PRN Reason: adequate visualization Stop: 10/02/22 10:03 Quetiapine Fumarate (Quetiapine Fumarate 100 Mg Tablet) 300 mg PO HS [facility] Last Admin: 09/29/22 22:46 Dose: 30
--- NOTE | 2022-09-30 12:12 | PCSTNOTE ---
Patient is going to be undergoing cardiac cath with sedation and unable to participate in bedside swallow evaluation today. Will attempt in the morning.
--- NOTE | 2022-09-30 12:40 | PC.NURSE ---
Patient to cardiac catheterization technologist with staff, no distress at the time of transfer. Vital signs WNL, patient oriented x4, room air.
[2022-09-30 13:04] LABS: Influenza A QL RT-PCR Negative (Negative); Influenza B QL RT-PCR Negative (Negative); RSV RNA, RT-PCR Negative (Negative); SARS-CoV-2 RNA PCR Negative (Negative)
[2022-09-30 13:31] LABS: Activated Clotting Time 173 SEC (74-137)
--- NOTE | 2022-09-30 13:44 | WPDCNINT ---
Assessment and Plan Assessment and plan (1) Non-ST elevation [place] (NSTEMI): Code(s): I21.4 - Non-ST elevation (NSTEMI) myocardial infarction Status: Acute Assessment and Plan: Patient has history of coronary disease and is status post cardiac catheterization and stent placement in left circumflex 1 year ago Now presented with chest pain elevated troponin suggestive of non ST segment elevation [place] Underwent cardiac catheterization today which showed stent extending into left coronary artery and obstructing flow into LAD Estimated ejection fraction on left ventriculogram was 30 % Now status post placement of intra-aortic balloon pump Cardiology plans to transfer patient to tertiary hospital for either high risk PCI or CABG Patient will be admitted to ICU for closer monitoring Continue heparin infusion Continue aspirin Plavix statin beta-john paul and GÓMEZ-inhibitor Echo ordered and pending IABP is set at 1:1 (2) Hyperlipidemia: Code(s): E78.5 - Hyperlipidemia, unspecified Status: Acute Assessment and Plan: Continue Lipitor (3) Seizure: Code(s): R56.9 - Unspecified convulsions Status: Acute Assessment and Plan: Continue Keppra (4) Hypertension: Code(s): I10 - Essential (primary) hypertension Status: Acute Assessment and Plan: On metoprolol and Vasotec (5) Cardiogenic shock: Code(s): R57.0 - Cardiogenic shock Status: Acute Assessment and Plan: See above (6) Coronary artery disease: Code(s): I25.10 - Atherosclerotic heart disease of [place] coronary artery without angina pectoris Status: Acute Assessment and Plan: See above (7) Ischemic cardiomyopathy: Code(s): I25.5 - Ischemic cardiomyopathy Status: Acute Assessment and Plan: See above (8) Systolic congestive heart failure: Code(s): I50.20 - Unspecified systolic (congestive) heart failure Status: Acute Assessment and Plan: Since patient is on room air at this time and does not have any crackles on exam I will hold Lasix at this time. And also received significant amount of contrast and may need additional IV contrast at [facility]. (9) Arm pain, left: Code(s): M79.602 - Pain in left arm Status: Acute Assessment and Plan: Patient complains of nonspecific throbbing in his left arm and occasionally in his left leg. Patient does not describe it as a pain or paresthesia from history. Denies neck pain. Patient currently is being worked up and treated for coronary disease, NSTEMI and cardiogenic shock. He has intra-aortic balloon pump in place is being transferred to tertiary facility for definitive treatment. Once these issues are taken care and if symptoms persist further evaluation can be done including imaging of cervical spine and carotid vasculature to evaluate for nerve compression or cerebral vascular disease. Focal seizures also possibility continues EEG may be helpful. At this time patient is being transferred to tertiary facility hence I will defer any further workup. Plan DVT prophylaxis -heparin infusion Nutrition -NPO Code Status - Full Code Case discussed with Dr. Sanabria with Cardiology Total Critical Care Time - 30 minutes Due to a high probability of clinically significant, life threatening deterioration, the patient required my highest level of preparedness to intervene emergently and I personally spent this critical care time directly and personally managing the patient. This critical care time included obtaining a history; examining the patient; pulse oximetry; ordering and review of studies; arranging urgent treatment with development of a management plan; evaluation of patient's response to treatment; frequent reassessment; and discussions with other providers. It was exclusive of separately billable procedures and treating other patients and teaching time. Please see Assessment and Plan
--- NOTE | 2022-09-30 13:52 | WPDCARDPROC ---
Cardiac Cath Procedure Note Date of procedure:: 09/30/22 Performing physician:: Raymond Sanabria MD Indication:: acute coronary syndrome Brief clinical history:: this is a 56-year-old man with coronary disease with previous stenting of his mid circumflex in the past and the ostium of the circumflex in August of 2021. He enters this hospital with intermittent chest and left arm pain that is very atypical of angina but in this setting had a moderate troponin rise. In this setting a follow-up angiogram has been recommended for today. Procedure Procedure performed:: Left ventriculogram coronary angiogram placement of intra-aortic balloon pump Sedation/Medication given:: fentanyl 50 mg Versed 2 mg Access site:: right femoral artery Estimated blood loss:: 25 cc Procedure note:: patient was brought to the cardiac catheterization lab in the postabsorptive state where his right femoral triangle was prepared usual fashion. Anesthesia was provided with 1% lidocaine infiltrated locally. Using the modified Seldinger technique a 5 [place] vascular sheath was placed and I then performed left heart catheterization. A 5 [place] angled pigtail was used to measure left-sided hemodynamics left ventriculogram was injected HERNANDEZ projection. Following this 5 [place] JR4 catheter was used to engage inject the right coronary artery and a 5 [place] FL4 catheter was used to engage and inject the left coronary artery. Cineangiograms were then reviewed. Because of critical ostial will LAD disease I elected to place an intra-aortic balloon pump and patient was given an additional 5000 units of heparin following balloon pump placement. He will be taken to the ICU and plans will be made for transfer to a higher level of care for either surgical or high-risk percutaneous revascularization. Procedure was well tolerated uncomplicated there was no evidence of groin hematoma upon leaving the matlab developer. Findings:: Hemodynamics: Central aortic pressure is 158 over 94 left ventricle 158/5 end-diastolic pressure 26 study shows no gradient across the aortic valve upon pullback. Left ventricle: The LV is mildly enlarged. There is global hypokinesia with akinesia of the apex of the right ventricle. The ejection fraction measures about 35% by visual estimation. The left main coronary artery is large in caliber and is patent. There is visible stent material extending the ostium of the circumflex into the distal aspect of the left main. The left anterior descending is a large caliber vessel extending down to the apex there is a 95-99% ostial LAD stenosis likely a consequence of the circumflex stent extending across the ostium of the LAD compromising its lumen. There was LETICIA 3 flow in the LAD down to the apex however. The remainder of the LAD has minimal luminal irregularities. The right coronary artery is very large in caliber to posterior circulation the RCA modest 30-40% stenosis in 2nd portion of the remainder of the right coronary is free of significant disease. Conclusion:: 1. Right coronary dominant circulation with critical stenosis in the LAD ostium resulting from circumflex stent previously deployed across the ostium of the LAD into the left main last year. 2. Remaining patency of the circumflex ostium mid circumflex which were previously stented 3. left ventricular systolic dysfunction as described with elevated LVEDP 4. placement of intra-aortic balloon pump because of this critical anatomy with acute coronary syndrome. Patient will be requiring either surgical revascularization of the LAD or high risk/complex PCI through the sidewall of the stent that is jailing the LAD Raymond Snaabria MD [facility]
--- NOTE | 2022-09-30 14:20 | PC.NURSE ---
This patient, Brian Diaz, was transferred to ICU 6] on 09/30/22 at 1345. Personal belongings sent with patient. Report given to [Jesica RODRÍGUEZ ]. Appropriate documentation sent with patient.
--- NOTE | 2022-09-30 14:21 | PC.NURSE ---
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 Patient oriented to room policies and procedures. call light within reach. Patient in bed laying supine. Balloon pump intact with insertion point noted to right groin covered with gauze and transparent Tegaderm.
[2022-09-30] MEDS: SODIUM CHLORIDE 0.9% IV 1,000 ML 125 ML IV CONT (14:51)
[2022-09-30] MEDS: HEPARIN SOD/D5W 100 UNITS/ML 25,000 UNITS/250 ML BAG 18 UNITS IV CONT (14:52)
[2022-09-30 15:20] LABS: Partial Thromboplastin Time > 200.0 SECONDS (22.3-36.8)
--- NOTE | 2022-09-30 15:46 | PC.NURSE ---
Spoke with [facility] transfer center at 1531. Updates given on patient condition, last set of vitals, labs and medications infusing. No bed available at this time. Patient to transfer to [facility]. Accepting physician per ICU Dr. Howell. RN to continue to monitor.
[2022-09-30 15:49] LABS: Basophils Percent Auto 0.5 % (0.2-1.2); Eosinophils Absolute Auto 0.1 K/mm3 (0-0.3); Hematocrit 38.5 % (42.0-52.0); Hemoglobin 12.1 g/dL (14.0-18.0); Immature Granulocyte Absolute 0.02 K/mm3 (0.00-0.031); Immature Granulocyte Percent A 0.3 % (0-0.5); Lymphocytes Absolute Auto 2.15 K/mm3 (0.9-3.2); Lymphocytes Percent Auto 36.2 % (18.3-44.2); Mean Corpuscular HGB Conc 31.4 g/dl (32-36); Mean Corpuscular Hemoglobin 29.1 pg (26-34); Mean Corpuscular Volume 92.5 fl (80-100); Mean Platelet Volume 9.2 fl (7.4-10.4); Monocytes Absolute Auto 0.5 K/mm3 (0.1-0.6); Monocytes Percent Auto 7.9 % (2.6-8.5); Neutrophils Absolute Auto 3.2 K/mm3 (1.3-6.7); Neutrophils Percent Auto 54.1 % (45.5-73.1); Platelet Count Result 166 k/mm3 (150-375); Red Blood Count 4.16 M/mm3 (4.6-6.20); Red Cell Distribution Width 15.8 % (11.5-14.5); White Blood Count 5.9 K/mm3 (4.5-10.0)
--- NOTE | 2022-09-30 18:33 | PC.NURSE ---
Spoke with [facility] transfer center at 1649. Bed now available. Updates given on patients last set of vitals, current status, labs and medications given. Patient to transfer to [facility] room 1601. RN to call report to receiving unit.
--- NOTE | 2022-09-30 18:34 | PC.NURSE ---
Report given to Alvin Charles RN with [facility] [place] at 1725. All questions answered and plan of care reviewed. Patient to transport via helicopter [facility] transport team to receiving unit.
--- NOTE | 2022-09-30 18:36 | PC.NURSE ---
[facility] team arrived at 1735. Report given at bedside to [facility] team. Chest X-ray ordered to confirm IABP placement prior to transport. Patient leaving with all belongings, home medications, x2 peripheral IV's and IABP. Patients home medication Clonazepam located within locked safe in unit, discussed with patient about best alternative to safe medication transport of controlled substances. Patient Brian states he will picker feeder his home Clonazepam after he has been discharged from [facility] . Clonazepam remains in ICU locked safe, patient to picker feeder at later date. Air Vac team departed hospital at 1815 with Balloon pump intact augmenting 1:1 frequency. Patients vital signs and assessment obtained before patient departed the unit. All vitals noted to be stable and patient alert and oriented x4. Patient transferred with portable balloon pump port, x2 peripheral IV's that were flushed and intact/patent. Air vac team left with both normal saline and heparin infusing at current documented dosing. Air vac team to take over further care and management of patient.
--- NOTE | 2022-10-02 07:54 | PM.TDS ---
Transfer Discharge Sum: Prov Provider Date of admission: 09/29/22 07:08 Primary care physician: PHYSICIAN NOT ON STAFF Admitting clinician: Christ Whitney MD Consults: 09/28/22 18:25 Consult to Physician Routine Comment: Consulting Provider: Raymond Sanabria Reason for consultation: NSTEMI Has provider been notified: Yes DS: Admitting Diagnosis Discharge Date 09/30/22 Admitting Diagnosis Left arm pain DS: Discharge Diagnosis Discharge Diagnosis (1) Non-ST elevation [place] (NSTEMI): Code(s): I21.4 - Non-ST elevation (NSTEMI) myocardial infarction Status: Acute (2) Arm pain, left: Code(s): M79.602 - Pain in left arm Status: Acute (3) Hyperlipidemia: Code(s): E78.5 - Hyperlipidemia, unspecified Status: Acute (4) Hypertension: Code(s): I10 - Essential (primary) hypertension Status: Acute (5) Bipolar 1 disorder: Code(s): F31.9 - Bipolar disorder, unspecified Status: Acute Assessment and Plan: Mood assessed to be neither manic nor significantly depressed. Continue home medications of Seroquel and Effexor and monitor for mood changes. 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 - Localization-related (focal) (partial) symptomatic epilepsy and epileptic syndromes with simple partial seizures, not intractable, without status epilepticus Status: Acute (7) Abnormal chest xray: Code(s): R93.89 - Abnormal findings on diagnostic imaging of other specified body structures Status: Acute Transfer Discharge Sum: Med Medications Active and Home Medications: Home Medications atorvastatin 40 mg tablet 40 mg PO QPM 02/09/20 [History Confirmed 09/28/22] clopidogrel 75 mg tablet 75 mg PO DAILY 02/09/20 [History Confirmed 09/28/22] metoprolol tartrate 25 mg tablet 25 mg PO BID 02/09/20 [History Confirmed 09/28/22] albuterol sulfate 90 mcg/actuation aerosol inhaler (Ventolin HFA) 2 puff inhalation QID PRN Shortness Of Breath 09/28/22 [History Confirmed 09/28/22] aspirin 81 mg tablet,delayed release 81 mg PO DAILY 09/28/22 [History Confirmed 09/28/22] clonazepam 0.5 mg tablet 0.5 mg PO BID PRN Anxiety 09/28/22 [History Confirmed 09/28/22] enalapril maleate 5 mg tablet 5 mg PO BID 09/28/22 [History Confirmed 09/28/22] levetiracetam 1,000 mg tablet 1,000 mg PO Q12H 09/28/22 [History Confirmed 09/28/22] quetiapine 300 mg tablet 300 mg PO HS 09/28/22 [History Confirmed 09/28/22] venlafaxine 150 mg capsule,extended release 24 hr 150 mg PO DAILY 09/28/22 [History Confirmed 09/28/22] Transfer Discharge Sum: Hosp Hospital Course Hospital course: 56yo male with CAD s/p 2 stents, 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 Please see H&P for details. Patient presents with atypical symptoms with left arm throbbing, headache and left leg twitching. Troponin were elevated on admission and peaked at 2.54. TCK normal. EKG showing NSR with nonspecific ST-T wave changes inferolateral leads. Patient complaining of periodic throbbing and twitching and left arm and occasionally in left leg. Possibly anginal equivalent. These symptoms are different from his previous presentation at which time he had angioplasty/stent. Patient was on Plavix, ASA, Lipitor and Toprol on admission and these medications were continued. He was started on Heparin drip. Cardiology was consulted. LFTs normal. TG 351, TC 137, HDL 54 and HDL 49. Patient was on atorvastatin which was continued. Chest x-ray showed mild diffuse interstitial prominence specially the right lung base and associated airspace disease.? No oxygen requirements.? No complaints of odynophagia or dysphagia.? White count was normal.? COVID/influenza/RSV negative. He was taken for LHC on 09/30/22. This showed: 1.? ? Right coronary dominant circulation with critical stenosis in the LAD ostium resulting from circumflex st
== END 2022-09-30 18:15 | disposition short-term general hospital (02) | DRG 270 ==
LOC: ANHED 15:46 → ANHIMU 19:11 → ANHICU 09-30 13:50
PROVIDERS: Internal Medicine; Nurse Practitioner; Admitting Provider Internal Medicine; Emergency Provider Preventive Medicine Aerospace Medicine; Visit Provider Specialist
PROC: 4A023N7 Measurement of Cardiac Sampling and Pressure, Left Heart, Percutaneous Approach (ICD-10-PCS; CPT 93452; principal; 2022-09-30 12:30)
PROC: 5A02210 Assistance with Cardiac Output using Balloon Pump, Continuous (ICD-10-PCS; 2022-09-30 12:30)
DX: I21.4 Non-ST elevation (NSTEMI) myocardial infarction (principal); R57.0 Cardiogenic shock; G40.109 Localization-related (focal) (partial) symptomatic epilepsy and epileptic syndromes with simple partial seizures, not intractable, without status epilepticus; E78.5 Hyperlipidemia, unspecified; I10 Essential (primary) hypertension; I25.5 Ischemic cardiomyopathy; F31.9 Bipolar disorder, unspecified; R93.89 Abnormal findings on diagnostic imaging of other specified body structures; I25.10 Atherosclerotic heart disease of native coronary artery without angina pectoris; F41.9 Anxiety disorder, unspecified; Z96.642 Presence of left artificial hip joint; Z95.5 Presence of coronary angioplasty implant and graft; Z87.891 Personal history of nicotine dependence; Z20.822 Contact with and (suspected) exposure to COVID-19; E66.9 Obesity, unspecified; Z68.37 Body mass index [BMI] 37.0-37.9, adult
CPT/HCPCS: 33967; 36415; 70450; 71045; 80053; 80061; 82550; 83735; 83880; 84439; 84443; 84480; 84484; 85025; 85610; 85730; 87637; 93005; 93458; 96365; 96366; 99291; A9270; C1887; C1894; G0378; J1644; J2250; J3010; J7030; J7040; L1830